=== PATIENT | male | born 1970 | race Two or more races ===

== ENCOUNTER 2023-02-20 10:27 | Emergency (ER) | payer BC ==
[~2023-02-20] VITALS: Ht 167.6 cm; Wt 78.9 kg
[2023-02-20] MEDS ORDERED: HYDROCODONE/APAP 5/325MG TABLET PO ONE (11:00)
[2023-02-20] MEDS ORDERED: FENTANYL PF 100MCG/2ML AMPUL IM ONE (11:00)
[2023-02-20] MEDS ORDERED: FENTANYL PF 100MCG/2ML AMPUL ONE (11:02)
[2023-02-20] MEDS ORDERED: HYDROCODONE/APAP 5/325MG TABLET ONE (11:02)
[2023-02-20] MEDS ORDERED: HYDR-4209 PO (12:06)
[2023-02-20 12:41] VITALS: BP 140/91; TEMP 98.2; O2SAT 94
[2023-02-20] MEDS ORDERED: OXYC-128 PO (13:31)
== END 2023-02-20 12:41 | disposition home or self-care (01) ==
LOC: ER 10:48
DX: S42.352A Displaced comminuted fracture of shaft of humerus, left arm, initial encounter for closed fracture (principal); Z79.899 Other long term (current) drug therapy; W01.0XXA Fall on same level from slipping, tripping and stumbling without subsequent striking against object, initial encounter; Y93.89 Activity, other specified; Y92.89 Other specified places as the place of occurrence of the external cause; Y99.8 Other external cause status
CPT/HCPCS: 29105; 73060; 96372; 99283; J3010